=== PATIENT | female | born 1960 | race Caucasian/White ===

== ENCOUNTER 2016-12-29 13:00 | Day surgery (SDC) | payer BC ==
[2016-12-25 11:00] VITALS: BMI 26.6
[~2016-12-29 13:00] MED LIST: LACTATED RINGERS 1,000 ML IV SCH; LIDOCAINE 1% 20 ML VIAL (10MG/ML) FOR IV START INTRADERMA PRN
[2016-12-29] MEDS: ONDANSETRON 4 MG/2 ML VIAL IVP ONE ×2 (14:06→17:50)
[2016-12-29] MEDS ORDERED: MIDAZOLAM 2 MG/2 ML VIAL IVP ONE (14:47)
[2016-12-29] MEDS ORDERED: SUCCINYLCHOLINE CHLORIDE 100 MG/5 ML SYR IV ONE (16:04)
[2016-12-29] MEDS ORDERED: MIDAZOLAM 2 MG/2 ML VIAL ONE (16:04)
[2016-12-29] MEDS ORDERED: fentaNYL (PF) 50 MCG/ML 2 ML AMP ONE (16:04)
[2016-12-29] MEDS ORDERED: PROPOFOL 10 MG/ML 20 ML VIAL IV ONE (16:04)
[2016-12-29] MEDS ORDERED: LIDOCAINE 1% INJ 10MG/ML (20 ML MDV) ONE (16:04)
[2016-12-29] MEDS: ceFAZolin IN SWFI 2 GM/20 ML SYRINGE IVP ONE ×2 (16:04→16:29)
[2016-12-29] MEDS: HYDROmorphone 0.5 MG/0.5 ML SYRINGE IVP PRN ×4 (17:25→17:42)
[2016-12-29 17:31] VITALS: TEMP 98.8
[2016-12-29] MEDS ORDERED: LACTATED RINGERS 1,000 ML IV ONE (17:39)
--- NOTE | 2016-12-29 17:41 | P.OP ---
Date of Procedure: 12/29/16 Preoperative Diagnosis: 1. Right Lisfranc ligament disruption with second metatarsal base fracture 2. Right third metatarsal shaft fracture Postoperative Diagnosis: Same Procedure(s) Performed: 1. Open reduction and internal fixation of right second tarsometatarsal fracture dislocation (open reduction internal fixation right Lisfranc injury) 2. Nonoperative management of right third metatarsal shaft fracture 3. Application of short leg splint Anesthesia: KHRIS Surgeon: Gal Simpson Geriatrics Physician #1: Jose Alejandro Doherty Estimated Blood Loss (ml): 5 IV fluids (ml): 350 Pathology: none sent Condition: stable Disposition: PACU Indications for Procedure: The patient is a 56-year-old female who sustained an isolated injury to her right foot in a fall. She says she heard and felt a pop at the time of her injury. She was immediately painful and unable to ambulate. She was seen in an emergency department, diagnosed with midfoot fractures, placed in a splint and sent to my office for further evaluation. On exam the patient had diffuse swelling, midfoot tenderness, and plantar ecchymosis. Her x-rays showed a slightly widened Lisfranc injury with tony sign and third metatarsal base fracture. She was sent for a computed tomography scan and had stress x-rays in the office which showed diastases with abduction between the base of the second metatarsal and medial cuneiform. Due to the unstable nature of her injury I recommended open reduction and internal fixation in the operating room. We discussed the potential risks and complications of surgery including but not limited to risk of anesthesia, risk of superficial infection, risk of deep infection, risk of delayed wound healing, risk of superficial wound necrosis, risk of damage to local sensory nerves resulting in temporary or permanent numbness, risk of a painful neuroma, risk of nonunion of her fractures, risk of postoperative diastases, risk of failure of hardware, risk of recurrent instability, risk of posttraumatic arthritis, risk of chronic pain, risk of chronic swelling, risk of inability to regain preinjury level of function, risk of generalized to satisfaction of surgery, risk of DVT, risk of PE, risk of other postoperative medical complications, and possibly loss of life or limb. She voiced her understanding of this and provided her verbal and written consent to go forward with surgery. Description of Procedure: The patient was identified in preoperative holding and the correct right leg was marked with my initials. I reviewed the consent form with the patient and answered all of her questions. A popliteal and saphenous nerve block was placed by anesthesia. The patient was then brought back to the operating room and positioned on the operating room table. A general anesthetic and preoperative antibiotics were administered. A tourniquet was applied to the proximal aspect of the right thigh. The left leg was secured to the table with foam and tape. A bone foam ramp was placed under her right leg and a bump was placed under her right buttock. Prior to starting surgery timeout was performed identifying the correct patient, operative extremity, and procedure. Prior to starting surgery Alejandro abduction stress x-ray was performed. When application of a manual abduction stress to the midfoot there was diastases between the second metatarsal base and medial cuneiform. I interpreted this as an unstable Lisfranc injury requiring surgery. The right foot was then prepped and draped in the standard sterile fashion. Prior to starting surgery timeout was performed identifying the correct patient, operative extremity, and procedure. The patient's leg was then elevated, exsanguinated with an Esmarch bandage, and the tourniquet was inflated to 250 mmHg. I began by outlining a longitudinal incision centered between the first and second metatarsals over the first tarsometatarsal joint. Skin incision was made with a 15 blade scalpel. I dissected carefully down through the subcutaneous tissue with tenotomy scissors. A crossing superficial nerve was identified proximally and retracted. I sharply develop the interval between the EHL and FHL. The joint capsule was hemorrhagic. The joint capsules elevated off of the dorsal first and second tarsometatarsal joints. There is obvious disruption between the base of the second metatarsal and medial cuneiform. I was able to place a Lacarne elevator in this space and there was gross instability of both the first and second metatarsals. I then placed one costa of a pointed reduction clamp on the lateral cortex of the proximal second metatarsal and the other costa was placed through a stab wound over the medial aspect of the medial cuneiform. The pointed reduction clamp was gently tightened. Clinically the Lisfranc joint complex appeared to be stable with no persistent diastases. An x-ray with fluoroscopy was taken showing reduction of the second metatarsal base into the [place]. I then placed a K wire for a cannulated 2.7 mm drill bit from the medial aspect of the medial cuneiform across the second metatarsal base. This depth was measured to 28 mm. I then used a cannulated 2.7 mm drill bit to create a threaded pilot boat captain hole from the medial cuneiform into the second metatarsal base. The drill and K wire were removed and a fully threaded, solid 3.5 mm screw was placed. Once the screw was placed the reduction clamp was removed. On inspection the Lisfranc complex appeared to be stable with no persistent diastases. I was unable to place a Lacarne elevator between the base of the second metatarsal and medial cuneiform. A manual abduction stress x-ray under fluoroscopy was repeated. After placement of the screw there was no diastases or signs of instability. An oblique x-ray was also taken showing no subluxation of the third or fourth metatarsals. A lateral x-ray was taken showing no gapping or signs of instability. At this point both wounds were copiously irrigated. The dorsal joint capsule was closed with a running 2-0 Vicryl stitch over the Lisfranc joint complex. The deep subcu was reapproximated using 2-0 Vicryl. The skin was closed with 3-0 nylon. The stab incisions medially were closed with 3-0 nylon. A sterile dressing including Betadine soaked Adaptic, 4 x 4, and web roll was applied followed by a well-padded bulky Matthews splint. The patient was then awoken from her anesthetic, extubated, transferred to the [facility] and brought to PACU having tolerated the procedure well. Jose Alejandro Doherty PA-C was required is a skilled legal document assistant for patient positioning, surgical exposure, [place]man of hardware, closure of wounds, and application of splint. Plan: The patient is going to discharge home as an outpatient. She is to remain strictly nonweightbearing in her operative extremity and is to keep her splint on at all times. She will follow-up in the office in 2 weeks for splint removal, suture removal, and x-rays out of splint.
[2016-12-29 18:55] VITALS: RESP 16
[2016-12-29 19:00] VITALS: BP 135/77; PULSE 79
--- NOTE | 2016-12-30 06:21 | FL ---
FLUOROSCOPY 33 seconds of fluoroscopy time were utilized during arthrodesis of the right foot. 6 images document the procedure.
--- NOTE | 2016-12-30 14:11 | P.ONQ ---
Anesthesiology Proc Note - PNB - Peripheral Nerve Block Performed Popliteal Single Time Out Performed: Yes Procedure Start Time: 14:45 Procedure Stop Time: 14:50 Indication: Acute Post-Operative Pain, Requested by physician Sedation Type: Sedate with meaningful contact maintained Preparation: Sterile Prep Needle Size: 50mm (2") Needle Gauge: 21 Technique: Ultrasound Injectate: 0.5% Ropivacaine (see comment for volume) (ropi.5% 20cc plus decadron 3mg) Blood Aspirated: No Pain Paresthesia on Injection Noted: No Resistance on Injection: Normal Events: Uneventful and Well Tolerated
== END 2016-12-29 19:59 | disposition home or self-care (01) ==
LOC: OR 13:00
PROVIDERS: ATTEND Orthopaedic Surgery
DX: S92.324A Nondisplaced fracture of second metatarsal bone, right foot, initial encounter for closed fracture (principal); S93.324A Dislocation of tarsometatarsal joint of right foot, initial encounter; S92.334A Nondisplaced fracture of third metatarsal bone, right foot, initial encounter for closed fracture; W10.9XXA Fall (on) (from) unspecified stairs and steps, initial encounter; E03.9 Hypothyroidism, unspecified; E78.5 Hyperlipidemia, unspecified; Z85.828 Personal history of other malignant neoplasm of skin; Z79.1 Long term (current) use of non-steroidal anti-inflammatories (NSAID); Z79.899 Other long term (current) drug therapy; Z88.0 Allergy status to penicillin; Z88.2 Allergy status to sulfonamides
CPT/HCPCS: 73630; 28485; 28615; J2250; J0690; J2405; J2001; J3010; J0330; J2704; J1170

== ENCOUNTER 2021-12-01 02:02 | Observation (INO) | payer BC ==
[2021-12-01 02:11] VITALS: TEMP 98.4
[2021-12-01] MEDS ORDERED: SODIUM CHLORIDE 0.9% 500 ML 500 ML IV STA (02:43)
[2021-12-01] MEDS ORDERED: ASPIRIN 81 MG PO STA (02:43)
--- NOTE | 2021-12-01 03:14 | XR ---
EXAMINATION TYPE: XR chest 2V DATE OF EXAM: 12/01/2021 COMPARISON: NONE HISTORY: Dysrhythmia TECHNIQUE: 2 view FINDINGS: Heart and mediastinum are normal. Lungs are clear. Diaphragm is normal. Bony thorax is inta ct. There are chest leads. IMPRESSION: Normal chest.
[2021-12-01 03:18] LABS: ALT 24 U/L (4-34); AST 21 U/L (14-36); African American GFR (CKD) >90 (>60 ml/min/1.73 sqM); Albumin 4.3 g/dL (3.5-5.0); Alkaline Phosphatase 57 U/L (38-126); Anion Gap 13 mmol/L; Blood Urea Nitrogen 16 mg/dL (7-17); Calcium 9.4 mg/dL (8.4-10.2); Carbon Dioxide 19 mmol/L (22-30); Chloride 105 mmol/L (98-107); Glucose 134 mg/dL (74-99); Magnesium 1.8 mg/dL (1.6-2.3); Non-African American GFR(CKD) >90 (>60 ml/min/1.73 sqM); Potassium 4.3 mmol/L (3.5-5.1); Sodium 137 mmol/L (137-145); Total Bilirubin 0.3 mg/dL (0.2-1.3); Total Protein 6.5 g/dL (6.3-8.2)
[2021-12-01 03:22] LABS: INR 0.9 (<1.2); Partial Thromboplastin Time 23.2 sec (22.0-30.0); Prothrombin Time 10.3 sec (9.0-12.0)
--- NOTE | 2021-12-01 03:24 | ED ---
General Adult HPI - General Chief complaint: Arrhythmia/Palpitations Stated complaint: High heart rate Time Seen by Provider: 12/01/21 02:26 Source: patient, RN notes reviewed, old records reviewed Mode of arrival: wheelchair - History of Present Illness Initial comments: Patient is a 61-year-old female with past medical history remarkable for diverticulosis/diverticulitis, thyroid disease his head near syncopal or syncopal episodes in the past when having bowel movements presents emergency Department complaining of the feeling of a racing heart/palpatations following one of these near syncopal episodes after having a bowel movement earlier this evening. States this occurred around 9:30 PM. Heart rate was elevated according to her fit bit went up to 120 beats per minute. She also felt an isolated left upper arm pain that did not radiate from any location that lasted approximately 10 minutes earlier this evening around the time of the palpatations but went away on its own. Denies any chest pain. Denies any current palpitations. Denies any shortness of breath. Denies any nausea or vomiting. Denies any abdominal pain. Has no diarrhea. Just finished a course of antibiotics for diverticulitis. States her symptoms are improving. Denies any history of blood clots. Denies any lower extremity edema. Denies any weakness or numbness in any of her extremities. No other acute complaints at this time. Presents for further evaluation of this time. States her symptoms are pretty typical for nursing flow episode except for her fast heart rate following the episode.Currently is asymptomatic. - Related Data Home Medications Medication Instructions Recorded Confirmed Acetaminophen Tab [Tylenol Tab] 500 mg PO Q4H PRN 12/25/16 12/29/16 Ibuprofen 800 mg PO Q6H PRN 12/25/16 12/29/16 Thyroid,Pork [[place] Thyroid] 60 mg PO DAILY 12/25/16 12/29/16 Previous Rx's Medication Instructions Recorded Aspirin 325 mg PO BID #60 tab 12/29/16 HYDROcodone/APAP 5-325MG [[place] 1 - 2 tab PO Q4H PRN #50 tab 12/29/16 5-325] Allergies Allergy/AdvReac Type Severity Reaction Status Date / Time Penicillins Allergy Rash/Hives Verified 12/01/21 02:10 Sulfa (Sulfonamide Allergy Rash/Hives Verified 12/01/21 02:10 Antibiotics) Review of Systems ROS Statement: Those systems with pertinent positive or pertinent negative responses have been documented in the HPI. Review of Systems: CONST: Denies fever EYES: Denies blurry vision ENT: Denies nasal congestion C/V: Denies Chest pain RESP: Denies shortness of breath GI: Denies abdominal pain : Denies dysuria SKIN: Denies rash. MSK: Denies joint pain. NEURO: Denies headache ROS Other: All systems not noted in ROS Statement are negative. Past Medical History Past Medical History: Cancer, GERD/Reflux, Musculoskeletal Disorder, Osteoarthritis (OA), Thyroid Disorder Additional Past Medical History / Comment(s): fell & fx. right foot 12-14-16-we aring fx. boot, hx. skin cancer, diverticulitis, chronic back pain History of Any Multi-Drug Resistant Organisms: None Reported Past Surgical History: Breast Surgery Additional Past Surgical History / Comment(s): left oophorectomy, breast biopsy Past Anesthesia/Blood Transfusion Reactions: No Reported Reaction Additional Past Anesthesia/Blood Transfusion Reaction / Comment(s): very fearful of needles-has passed out before Past Psychological History: No Psychological Hx Reported Smoking Status: Never smoker Past Alcohol Use History: Occasional Past Drug Use History: None Reported - Past Family History Sister(s) Family Medical History: Cancer Father Family Medical History: Cancer General Exam - General Exam Comments Initial Comments: General: Appears in no acute distress. HEAD: Normal with no signs of head trauma. EYES: PERRLA, EOMI, conjunctiva normal, no discharge. ENT: Hearing grossly intact, normal oropharynx. RESPIRATORY: Clear breath sounds bilaterally. No wheezes, rales, or rhonchi. C/V: Regular rate and rhythm. S1 and S2 auscultated, no edema, peripheral pulses 2+ and intact throughout ABD: Abd is soft, nontender, nondistended EXT: Normal range of motion, no obvious deformity SKIN: No rashes or lesions observed on exposed skin. NEURO: Alert and oriented 4. No focal sensory strength deficits. Course Vital Signs 12/01/21 12/01/21 02:07 03:03 Temperature 98.4 F Pulse Rate 85 76 Respiratory 18 18 Rate Blood Pressure 158/87 120/93 O2 Sat by Pulse 98 96 Oximetry Medical Decision Making - Medical Decision Making Based on the patient's presentation and physical exam, I'm concerned for possible cardiopulmonary etiology for her symptoms. Currently is asymptomatic but had a near syncopal episode earlier with fast heart rate/palpatations and family history of heart disease and atrial fibrillation, which the patient and family are concerned about. All symptoms have resolved. However she will receive an aspirin, small fluid bolus, I would like to obtain cardio pulmonary labs. She was in agreement this plan. Vital signs are within acceptable limits. No tachycardia at this time. EKG shows no signs of acute ischemia. Chest x-ray shows no acute cardiopulmonary process. Patient's laboratory studies are unremarkable, including a d-dimer within normal limits and undetectable troponin. Covid is negative. On reevaluation, patient remains asymptomatic at this time. Patient's heart score is 3. I did discuss with her discharge versus admission. Patient seems extremely concerned regarding possible atrial fibrillation episode earlier. She currently is asymptomatic. I did offer her observation telemetry admission and she does not have any means of monitoring heart rhythm at home and has not followed up with a teachers' aide. She did accept at this time. We'll trend the troponin. Patient was in agreement this plan. Cardiology was consulted. Spoke with patient's admitting physician, Dr. Novak who accepted the patient was in agreement this plan. Patient was admitted to observation telemetry.. - Lab Data Result diagrams: 12/01/21 02:45 12/01/21 02:45 Lab Results 12/01/21 12/01/21 12/01/21 Range/Units 02:44 02:45 02:45 WBC 6.9 (3.8-10.6) k/uL RBC 4.55 (3.80-5.40) m/uL Hgb 14.1 (11.4-16.0) gm/dL Hct 41.3 (34.0-46.0) % MCV 90.6 (80.0-100.0) fL MCH 30.9 (25.0-35.0) pg MCHC 34.1 (31.0-37.0) g/dL RDW 12.5 (11.5-15.5) % Plt Count 229 (150-450) k/uL MPV 8.5 Neutrophils % 65 % Lymphocytes % 22 % Monocytes % 7 % Eosinophils % 1 % Basophils % 0 % Neutrophils # 4.5 (1.3-7.7) k/uL Lymphocytes # 1.5 (1.0-4.8) k/uL Monocytes # 0.5 (0-1.0) k/uL Eosinophils # 0.1 (0-0.7) k/uL Basophils # 0.0 (0-0.2) k/uL PT 10.3 (9.0-12.0) sec INR 0.9 (<1.2) APTT 23.2 (22.0-30.0) sec D-Dimer 0.24 (<0.60) mg/L FEU Sodium (137-145) mmol/L Potassium (3.5-5.1) mmol/L Chloride (98-107) mmol/L Carbon Dioxide (22-30) mmol/L Anion Gap mmol/L BUN (7-17) mg/dL Creatinine (0.52-1.04) mg/dL Est GFR (CKD-EPI)AfAm (>60 ml/min/1.73 sqM) Est GFR (CKD-EPI)NonAf (>60 ml/min/1.73 sqM) Glucose (74-99) mg/dL Calcium (8.4-10.2) mg/dL Magnesium (1.6-2.3) mg/dL Total Bilirubin (0.2-1.3) mg/dL AST (14-36) U/L ALT (4-34) U/L Alkaline Phosphatase (38-126) U/L Troponin I (0.000-0.034) ng/mL Total Protein (6.3-8.2) g/dL Albumin (3.5-5.0) g/dL Coronavirus (PCR) Not Detected (Not Detectd) 12/01/21 12/01/21 Range/Units 02:45 02:45 WBC (3.8-10.6) k/uL RBC (3.80-5.40) m/uL Hgb (11.4-16.0) gm/dL Hct (34.0-46.0) % MCV (80.0-100.0) fL MCH (25.0-35.0) pg MCHC (31.0-37.0) g/dL RDW (11.5-15.5) % Plt Count (150-450) k/uL MPV Neutrophils % % Lymphocytes % % Monocytes % % Eosinophils % % Basophils % % Neutrophils # (1.3-7.7) k/uL Lymphocytes # (1.0-4.8) k/uL Monocytes # (0-1.0) k/uL Eosinophils # (0-0.7) k/uL Basophils # (0-0.2) k/uL PT (9.0-12.0) sec INR (<1.2) APTT (22.0-30.0) sec D-Dimer (<0.60) mg/L FEU Sodium 137 (137-145) mmol/L Potassium 4.3 (3.5-5.1) mmol/L Chloride 105 (98-107) mmol/L Carbon Dioxide 19 L (22-30) mmol/L Anion Gap 13 mmol/L BUN 16 (7-17) mg/dL Creatinine 0.54 (0.52-1.04) mg/dL Est GFR (CKD-EPI)AfAm >90 (>60 ml/min/1.73 sqM) Est GFR (CKD-EPI)NonAf >90 (>60 ml/min/1.73 sqM) Glucose 134 H (74-99) mg/dL Calcium 9.4 (8.4-10.2) mg/dL Magnesium 1.8 (1.6-2.3) mg/dL Total Bilirubin 0.3 (0.2-1.3) mg/dL AST 21 (14-36) U/L ALT 24 (4-34) U/L Alkaline Phosphatase 57 (38-126) U/L Troponin I <0.012 (0.000-0.034) ng/mL Total Protein 6.5 (6.3-8.2) g/dL Albumin 4.3 (3.5-5.0) g/dL Coronavirus (PCR) (Not Detectd) - EKG Data -: EKG Interpreted by Me EKG Comments: 12-lead Electrocardiogram Interpretation Note EKG was reviewed and interpreted by myself. 12-lead ECG performed at 0226 is interpreted by me as revealing normal sinus rhythm at a rate of 78 beats per minute. [place] is normal. [place] interval is 134 ms, QRS duration is 89 ms, QTc is 388 ms.. There were no ST or T wave abnormalities to suggest myocardial ischemia or injury. R wave progression across the precordium was satisfactory. By my interpretation this EKG is non-diagnostic for acute ischemia. Disposition Clinical Impression: Heart palpitations, Near syncope Disposition: ADMITTED IP TO THIS HOSP Condition: Stable Time of Disposition: 04:00
[2021-12-01 03:27] LABS: Basophils % (A) 0 %; Eosinophils # (A) 0.1 k/uL (0-0.7); Eosinophils % (A) 1 %; HCT 41.3 % (34.0-46.0); HGB 14.1 gm/dL (11.4-16.0); Lymphocytes # (A) 1.5 k/uL (1.0-4.8); Lymphocytes % (A) 22 %; MCH 30.9 pg (25.0-35.0); MCHC 34.1 g/dL (31.0-37.0); MCV 90.6 fL (80.0-100.0); Mean Platelet Volume 8.5; Monocytes # (A) 0.5 k/uL (0-1.0); Monocytes % (A) 7 %; Neutrophils # (A) 4.5 k/uL (1.3-7.7); Neutrophils % (A) 65 %; Platelet Count 229 k/uL (150-450); RBC 4.55 m/uL (3.80-5.40); RDW 12.5 % (11.5-15.5); WBC 6.9 k/uL (3.8-10.6)
[2021-12-01] MEDS ORDERED: NALOXONE 0.4 MG/ML 1 ML VIAL IV PRN (04:02)
[2021-12-01] MEDS ORDERED: HEPARIN SODIUM,PORCINE/PF 5,000 UNIT/0.5 ML SYRINGE SQ SCH (08:00)
[2021-12-01] MEDS ORDERED: IBUPROFEN 800 MG TAB PO PRN (08:02)
[2021-12-01 08:15] VITALS: RESP 18
[2021-12-01] MEDS ORDERED: THYROID, PORK 30 MG TAB PO SCH (09:00)
[2021-12-01] MEDS ORDERED: METOPROLOL SUCCINATE (ER) 25 MG TAB.ER.24H PO SCH (09:00)
[2021-12-01] MEDS ORDERED: LOSARTAN 25 MG TAB PO SCH (09:00)
[2021-12-01 09:23] VITALS: BP 134/70
--- NOTE | 2021-12-01 09:25 | US ---
EXAMINATION TYPE: US carotid duplex BILAT DATE OF EXAM: 12/01/2021 COMPARISON: NONE CLINICAL HISTORY: syncope. TECHNIQUE: Carotid duplex ultrasound examination. Indirect Doppler criteria was utilized. FINDINGS: EXAM MEASUREMENTS: RIGHT: Peak Systolic Velocity (PSV) cm/sec ----- Right CCA: 111.0 ----- Right ICA: 163.0 ----- Right ECA: 138.0 ICA/CCA ratio: 1.5 RIGHT: End Diastole cm/sec ----- Right CCA: 27.3 ----- Right ICA: 39.0 ----- Right ECA: 15.4 LEFT: Peak Systolic Velocity (PSV) cm/sec ----- Left CCA: 117.0 ----- Left ICA: 90.6 ----- Left ECA: 99.2 ICA/CCA ratio: 0.8 LEFT: End Diastole cm/sec ----- Left CCA: 25.6 ----- Left ICA: 22.8 ----- Left ECA: 10.8 VERTEBRALS (direction of flow): Right Vertebral: Antegrade Left Vertebral: Antegrade Rhythm: Normal Elevated velocities - right proximal ICA and right proximal ECA No significant stenosis IMPRESSION: 1. 50-69% stenosis of the right ICA. 2. Less than 50% stenosis of the left ICA. Criteria for Assigning % of Stenosis / Diameter reduction (Estimation based on the indirect measurements of the internal carotid artery velocities (ICA PSV). 1. Normal (no stenosis)=ICA PSV < 125 cm/s: ratio < 2.0: ICA EDV<40 cm/s. 2. Less than 50% stenosis=ICA PSV < 125 cm/s: ratio < 2.0: ICA EDV<40 cm/s. 3. 50 to 69% stenosis=ICA PSV of 125 to 230 cm/s: ration 2.0 ? 4.0: ICA EDV 40-100 cm/s. 4. Greater than 70% stenosis to near occlusion= ICA PSV > 230 cm/s: ratio > 4.0: ICA EDV > 100 cm/s. 5. Near occlusion= ICA PSV velocities may be low or undetectable: variable ratio and ICA EDV. 6. Total occlusion=unable to detect flow.
--- NOTE | 2021-12-01 09:59 | P.CRDCN ---
History of Present Illness History of present illness: HISTORY OF PRESENTING ILLNESS This is a pleasant 61-year-old female past medical history significant for hypothyroidism, syncope likely vasovagal, diverticulitis, GERD. 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 We have been asked to see in consultation for palpitations, tachycardia, near syncope. Patient presents emergency department with an episode of increased abdominal cramping yesterday, followed by back pain and diarrhea. She felt lightheaded as if she may pass out. She has had these similar episodes before and she brought herself to the ground and symptoms improved. She did not lose consciousness. After that she had increased palpitations overnight, she looked at fitbit wrist monitor and noted her HR to be in the 100-120s. She states her palpitations did not improve. She presented to the ER for further evaluation. She denies any chest pain, shortness of breath. On arrival to the ER her heart rates improved. She is a history of diverticulitis, recently was diagnosed with a flare and was placed on antibiotics. She has a history of near syncope and syncope with increased abdominal pain and cramping. When she was younger she also had episodes of near syncope and syncope with intense abdominal pain, needles, seeing blood or medical procedures. This morning she is overall feeling well. She denies any history of CAD, [place], Stroke, seizures, diabetes or hypertension. Her BP usually runs SBP 118-120s. She is a non-smoker. Denies alcohol or illicit drug use. DIAGNOSTICS * EKG reveals sinus rhythm, heart rate 78, no significant STT wave abnormalities. * Telemetry tracings indicate sinus rhythm, heart rate in the 60s80s, no arrhythmia noted.. * Chest xray no acute cardiopulmonary process * Carotid Dopplers reported 5069 percent stenosis of the right ICA, less than 5 0% stenosis of the left ICA * Laboratory reviewed CBC unremarkable, troponin negative 2, d-dimer negative, sodium 139, potassium 4.3, BUN 16, serum creatinine 0.54, magnesium 1.8 * Current home medications include thyroid, when necessary [place], when necessary ibuprofen, when necessary tramadol REVIEW OF SYSTEMS At the time of my exam: CONSTITUTIONAL: Denies fever or chills. CARDIOVASCULAR: Denies chest pain, shortness of breath, orthopnea, PND . Reports palpitations. RESPIRATORY: Denies cough. GASTROINTESTINAL: Denies abdominal pain, diarrhea, constipation, nausea or vomiting. MUSCULOSKELETAL: Denies myalgias. NEUROLOGIC: Denies numbness, tingling, headacbe or weakness. ENDOCRINE: Denies fatigue, weight change, polydipsia or polyurina. GENITOURINARY: Denies burning, hematuria or urgency with micturation. HEMATOLOGIC: Denies history of anemia or bleeding. PHYSICAL EXAMINATION Blood pressure 134/70, heart rate 80, afebrile, saturation 97% on room air CONSTITUTIONAL: No apparent distress. HEENT: Head is normocephalic. Pupils are equal, round. Sclerae anicteric. Mucous membranes of the mouth are moist. No JVD. No carotid bruit. CHEST EXAMINATION: Lungs are clear to auscultation. No chest wall tenderness is noted on palpation or with deep breathing. HEART EXAMINATION: Regular rate and rhythm. S1, S2 heard. No murmurs, gallops or rub. ABDOMEN: Soft, nontender. Positive bowel sounds. EXTREMITIES: 2+ peripheral pulses, no lower extremity edema and no calf tenderness. NEUROLOGIC EXAMINATION: Patient is awake, alert and oriented x3. ASSESSMENT Near syncopal episode, likely vasovagal Palpitations Abdominal cramping and diarrhea History of near syncope/syncope with abdominal pain/cramping. And prior syncope in her youth with needles, blood or seeing medical procedures History of diverticulitis Hypothyroidism PLAN Obtain TSH Obtain 2D echocardiogram and doppler study to assess cardiac structure and function. Recommend monitoring BP as an outpatient at home prior to starting antihypertensive medications Recommend 30 day event monitor prior to discharge Likely home later today and follow up outpatient. Nurse practitioner note has been reviewed by physician. Signing provider agrees with the documented findings, assessment, and plan of care. Past Medical History Past Medical History: Cancer, GERD/Reflux, Musculoskeletal Disorder, Osteoarthritis (OA), Thyroid Disorder Additional Past Medical History / Comment(s): fell & fx. right foot 65-5-31-wearing fx. boot, hx. skin cancer, diverticulitis, chronic back pain History of Any Multi-Drug Resistant Organisms: None Reported Past Surgical History: Breast Surgery Additional Past Surgical History / Comment(s): left oophorectomy, breast biopsy Past Anesthesia/Blood Transfusion Reactions: No Reported Reaction Additional Past Anesthesia/Blood Transfusion Reaction / Comment(s): very fearful of needles-has passed out before Past Psychological History: No Psychological Hx Reported Smoking Status: Never smoker Past Alcohol Use History: Occasional Past Drug Use History: None Reported - Past Family History Sister(s) Family Medical History: Cancer Father Family Medical History: Cancer Medications and Allergies Home Medications Medication Instructions Recorded Confirmed Type Ibuprofen 800 mg PO Q6H PRN 12/25/16 12/01/21 History Thyroid,Pork [[place] Thyroid] 60 mg PO BID 12/25/16 12/01/21 History Meloxicam [Mobic] 7.5 mg PO BID 12/01/21 12/01/21 History methocarbamoL [Methocarbamol] 750 mg PO QID PRN 12/01/21 12/01/21 History traMADol HCL 50 - 100 mg PO Q4H PRN 12/01/21 12/01/21 History Allergies Allergy/AdvReac Type Severity Reaction Status Date / Time Penicillins Allergy Rash/Hives Verified 12/01/21 08:02 Sulfa (Sulfonamide Allergy Rash/Hives Verified 12/01/21 08:02 Antibiotics) Physical Exam Vitals: Vital Signs Temp Pulse Resp BP Pulse Ox 12/01/21 08:13 70 18 168/89 99 12/01/21 06:59 63 16 118/63 97 12/01/21 03:03 76 18 120/93 96 12/01/21 02:07 98.4 F 85 18 158/87 98 Intake and Output 11/30/21 12/01/21 12/01/21 22:59 06:59 14:59 Other: Weight 79.379 kg Results 12/01/21 02:45 12/01/21 02:45 Cardiac Enzymes 12/01/21 12/01/21 12/01/21 Range/Units 02:45 02:45 06:23 AST 21 (14-36) U/L Troponin I <0.012 <0.012 (0.000-0.034) ng/mL Coagulation 12/01/21 Range/Units 02:45 PT 10.3 (9.0-12.0) sec APTT 23.2 (22.0-30.0) sec CBC 12/01/21 Range/Units 02:45 WBC 6.9 (3.8-10.6) k/uL RBC 4.55 (3.80-5.40) m/uL Hgb 14.1 (11.4-16.0) gm/dL Hct 41.3 (34.0-46.0) % Plt Count 229 (150-450) k/uL Comprehensive Metabolic Panel 12/01/21 Range/Units 02:45 Sodium 137 (137-145) mmol/L Potassium 4.3 (3.5-5.1) mmol/L Chloride 105 (98-107) mmol/L Carbon Dioxide 19 L (22-30) mmol/L BUN 16 (7-17) mg/dL Creatinine 0.54 (0.52-1.04) mg/dL Glucose 134 H (74-99) mg/dL Calcium 9.4 (8.4-10.2) mg/dL AST 21 (14-36) U/L ALT 24 (4-34) U/L Alkaline Phosphatase 57 (38-126) U/L Total Protein 6.5 (6.3-8.2) g/dL Albumin 4.3 (3.5-5.0) g/dL Current Medications Generic Name Dose Route Start Last Admin Trade Name Freq PRN Reason Stop Dose Admin Heparin Sodium (Porcine) 5,000 unit 12/01/21 08:00 12/01/21 08:15 Heparin Sodium,Porcine/Pf 5,000 Unit/0.5 Ml Syringe SQ Not Given Q8HR ATILIO Ibuprofen 800 mg 12/01/21 08:02 Ibuprofen 800 Mg Tab PO Q6H PRN Pain Losartan Potassium 25 mg 12/01/21 09:00 Losartan 25 Mg Tab PO DAILY ATILIO Metoprolol Succinate 25 mg 12/01/21 09:00 Metoprolol Succinate (Er) 25 Mg Tab.Er.24h PO DAILY ATILIO Naloxone HCl 0.2 mg 12/01/21 04:02 Naloxone 0.4 Mg/Ml 1 Ml Vial IV Q2M PRN Opioid Reversal Thyroid 60 mg 12/01/21 09:00 12/01/21 08:15 Thyroid, Pork 30 Mg Tab PO Not Given BID ATILIO Intake and Output 11/30/21 12/01/21 12/01/21 22:59 06:59 14:59 Other: Weight 79.379 kg 12/01/21 02:45 12/01/21 02:45
[2021-12-01] MEDS ORDERED: MELOXICAM 7.5 MG TAB PO PRN (10:20)
[2021-12-01] MEDS ORDERED: methocarbamoL 750 MG TAB PO PRN (10:20)
[2021-12-01] MEDS ORDERED: traMADol 50 MG TAB PO PRN (10:20)
--- NOTE | 2021-12-01 10:22 | P.HPIM ---
History of Present Illness H&P Date: 12/01/21 HISTORY OF PRESENT ILLNESS This is a 61-year-old female with past medical history of gastroesophageal reflux disease, generalized osteoarthritis, hypothyroidism, diverticulitis, c hronic back pain, skin cancer. Patient gives history that she had abdominal cramps yesterday tried have a bowel movement and had a syncopal episode which she states she has had in the past but infrequently. Following that, patient complains of her heart rate being high for a couple hours and she just felt "wrong." Her FitBit registered heart rate of 107 230s. She denies having any chest pain at the time but felt a little left arm pain that went away in a few minutes. Patient is not usually physically active and works at home at a desk. She has recently been on antibiotics a few weeks ago for diverticulitis. She is currently on a low residue diet which has not been advanced and is avoiding all nuts and seeds. She states her abdomen still feels a little crampy and bloated. Patient presented to [facility] and found to be afebrile, heart rate 85, blood pressure 158/87, pulse ox 90% on room air. EKG is a sinus rhythm with no acute ST-T wave changes. CBC was within normal limits. CO2 19 otherwise electrolytes and renal function normal. Blood sugar 134. D-dimer 0.24. INR 0.9. Coronavirus PCR not detected. Magnesium 1.8. Liver function tests within normal limits. Troponin negative. Albumin 4.3. Chest x-ray normal. Patient is seen today in the emergency center waiting for a bed on the observation unit. Consult in place with cardiology and we have added an echocardiogram and carotid ultrasound. Cardiology has recommended holding blood pressure medication and monitor blood pressure in the outpatient setting, event monitor has been placed and patient is cleared by cardiology for discharge home. Patient will be discharged today in stable condition. Carotid ultrasound reveals 50-69% stenosis on the right ICA, less than 50% stenosis of the left ICA. Echocardiogram reveals EF of 55%, borderline increased left ventricular wall thickness, mild mitral regurgitation, mild tricuspid regurgitation. REVIEW OF SYSTEMS Constitutional: No fever, no chills, no night sweats. No weight change. No weakness, fatigue or lethargy. No daytime sleepiness. EENT: No headache. No blurred vision or double vision, no loss of vision. No loss of Hearing, no ringing in the ears, no dizziness. No nasal drainage or congestion. No epistaxis. No sore throat. Lungs: No shortness of breath, cough, no sputum production. No wheezing. Cardiovascular: No chest pain, no lower extremity edema. No palpitations. No paroxysmal nocturnal dyspnea. No orthopnea. No lightheadedness or dizziness. Reported 1 syncopal episode. Abdominal: Minimal left lower quadrant pain, mild abdominal bloating. No nausea, vomiting. No diarrhea. No constipation. No bloody or tarry stools. No loss of appetite. Genitourinary: No dysuria, increased frequency, urgency. No urinary retention. Musculoskeletal: No myalgias. No muscle weakness, no gait dysfunction, no frequent falls. Chronic back pain. No neck pain. Integumentary: No wounds, no lesions. No rash or pruritus. No unusual bruising. No change in hair or nails. Neurologic: No aphasia. No facial droop. No change in mentation. No head injury. No headache. No paralysis. No paresthesia. Psychiatric: No depression. No anxiety. No mood swings. Endocrine: No abnormal blood sugars. No weight change. No excessive sweating or thirst. No cold intolerance. 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 SOCIAL HISTORY Patient is a lifelong nonsmoker, occasional alcohol use, no illicit drug use. Patient lives at home alone. FAMILY HISTORY Mother is alive at age 80 with history of coronary artery disease, diabetes, hypertension and TIAs. Father is alive at age 82 with history of coronary artery disease, A. fib status post ablation. He has history of colon cancer, prostate cancer and basal cell skin cancer. Patient has one brother with history of diabetes and hypertension. Patient has 3 sisters, 2 sisters have no major medical problems. One sister has history of melanoma and hypertension. PHYSICAL EXAMINATION Gen: This is an obese 61-year-old female. She is resting on the ER stretcher and appears to be comfortable and in no acute distress. HEENT: Head is atraumatic, normocephalic. Pupils equal, round. Sclerae is anicteric. NECK: Supple. No JVD. No lymphadenopathy. No thyromegaly. LUNGS: Clear to auscultation. No wheezes or rhonchi. No intercostal retractions. HEART: Regular rate and rhythm. No murmur. ABDOMEN: Soft. Bowel sounds are present. No masses. No tenderness. No left lower quadrant tenderness. EXTREMITIES: No pedal edema. No calf tenderness. NEUROLOGICAL: Patient is awake, alert and oriented x3. Cranial nerves 2 through 12 are grossly intact. ASSESSMENT AND PLAN 1. Syncopal episode most likely vasovagal. Cardiology consult ordered, echocardiogram and carotid ultrasound. 2. Hypertension. Monitor as an outpatient 3. Sinus tachycardia. 4. Recent treatment for diverticulitis, patient completed course of antibiotics. 5. Hypothyroidism. Continue [place] Thyroid 60 mg twice daily. 6. Chronic back pain. Continue tramadol as needed, methocarbamol 750 mg 4 times daily if needed, multiple back 7.5 mg twice daily if needed. 7. GI prophylaxis. Protonix. 8. DVT prophylaxis. Early ambulation. CODE STATUS: Full code Patient is observation status. DISCHARGE PLAN Return home. No changes made to patient's home medication list. Impression and plan of care have been directed as dictated by the signing physician. Litzy Guzman nurse practitioner acting as scribe for signing physician. Past Medical History Past Medical History: Cancer, GERD/Reflux, Musculoskeletal Disorder, Osteoarthritis (OA), Thyroid Disorder Additional Past Medical History / Comment(s): fell & fx. right foot 12-14-16-wearing fx. boot, hx. skin cancer, diverticulitis, chronic back pain History of Any Multi-Drug Resistant Organisms: None Reported Past Surgical History: Breast Surgery Additional Past Surgical History / Comment(s): left oophorectomy, breast biopsy Past Anesthesia/Blood Transfusion Reactions: No Reported Reaction Additional Past Anesthesia/Blood Transfusion Reaction / Comment(s): very fearful of needles-has passed out before Past Psychological History: No Psychological Hx Reported Smoking Status: Never smoker Past Alcohol Use History: Occasional Past Drug Use History: None Reported - Past Family History Sister(s) Family Medical History: Cancer Father Family Medical History: Cancer Medications and Allergies Home Medications Medication Instructions Recorded Confirmed Type RX: Ibuprofen 800 mg PO Q6H PRN 12/25/16 12/01/21 History RX: Thyroid,Pork [[place] Thyroid] 60 mg PO BID 12/25/16 12/01/21 History RX: Meloxicam [Mobic] 7.5 mg PO BID 12/01/21 12/01/21 History RX: methocarbamoL [Methocarbamol] 750 mg PO QID PRN 12/01/21 12/01/21 History RX: traMADol HCL 50 - 100 mg PO Q4H PRN 12/01/21 12/01/21 History Allergies Allergy/AdvReac Type Severity Reaction Status Date / Time Penicillins Allergy Rash/Hives Verified 12/01/21 08:02 Sulfa (Sulfonamide Allergy Rash/Hives Verified 12/01/21 08:02 Antibiotics) Physical Exam Vitals: Vital Signs Temp Pulse Resp BP Pulse Ox 12/01/21 06:59 63 16 118/63 97 12/01/21 03:03 76 18 120/93 96 12/01/21 02:07 98.4 F 85 18 158/87 98 Intake and Output 11/30/21 12/01/21 12/01/21 22:59 06:59 14:59 Other: Weight 79.379 kg Results CBC & Chem 7: 12/01/21 02:45 12/01/21 02:45 Labs: Abnormal Lab Results - Last 24 Hours (Table) 12/01/21 Range/Units 02:45 Carbon Dioxide 19 L (22-30) mmol/L Glucose 134 H (74-99) mg/dL
--- NOTE | 2021-12-01 11:56 | CA ---
Transthoracic Echo Report Name: Catia Hernandez Age: 61 Gender: F : 1960 Exam Date: 12/01/2021 09:23 Exam Location: [facility] Ht (in): 65 Wt (lb): 175 Ordering Physician: Litzy Guzman Attending/Referring Phys: Thomas Mcghee;[id number] Manager [employer] Lainey Mo RDCS Procedure CPT: Indications: LVF Cardiac Hx: Technical Quality: Good Contrast 1: Total Dose (mL): Contrast 2: Total Dose (mL): MEASUREMENTS (Male / Female) Normal Values 2D ECHO LV Diastolic Diameter PLAX 3.9 cm 4.2 - 5.9 / 3.9 - 5.3 cm LV Systolic Diameter PLAX 2.6 cm IVS Diastolic Thickness 1.1 cm 0.6 - 1.0 / 0.6 - 0.9 cm LVPW Diastolic Thickness 1.2 cm 0.6 - 1.0 / 0.6 - 0.9 cm LV Relative Wall Thickness 0.6 RV Internal Dim ED PLAX 2.8 cm LA Systolic Diameter LX 2.9 cm 3.0 - 4.0 / 2.7 - 3.8 cm M-MODE Aortic Root Diameter MM 2.2 cm LA Systolic Diameter MM 3.1 cm LA Ao Ratio MM 1.4 MV E Point Septal Separation 0.6 cm AV Cusp Separation MM 2.0 cm DOPPLER MV Area PHT 3.7 cm??? Mitral E Point Velocity 99.4 cm/s Mitral A Point Velocity 88.4 cm/s Mitral E to A Ratio 1.1 MV Deceleration Time 207.0 ms MV E' Velocity 9.5 cm/s Mitral E to MV E' Ratio 10.4 FINDINGS Left Ventricle Left ventricular ejection fraction is estimated at 55%. Borderline increased left ventricular wall thickness Right Ventricle Normal right ventricular size and function. Right Atrium Normal right atrial size. Left Atrium Normal left atrial size. Mitral Valve Structurally normal mitral valve. Mild mitral regurgitation. Aortic Valve Trileaflet aortic valve. Tricuspid Valve Structurally normal tricuspid valve. Mild tricuspid regurgitation. Pulmonic Valve Pulmonic valve not well visualized. Pericardium Normal pericardium. Aorta Normal size aortic root and proximal ascending aorta. CONCLUSIONS Left ventricular ejection fraction 55% Borderline increased left ventricular wall thickness Mild mitral regurgitation Mild tricuspid regurgitation No pericardial effusion Previewed by: Dr. Arash Varela DO (Electronically Signed) Final Date: 01 December 2021 11:55
[2021-12-01 12:10] LABS: T4, Free (Free Thyroxine) 0.91 ng/dL (0.78-2.19)
[2021-12-01 13:19] VITALS: PULSE 75
== END 2021-12-01 14:00 | disposition home or self-care (01) ==
LOC: EC 02:02 → 6NMEDSUR 04:03
PROVIDERS: ADMIT Internal Medicine; ATTEND Internal Medicine
DX: R55 Syncope and collapse (principal); R00.2 Palpitations; R10.9 Unspecified abdominal pain; R19.7 Diarrhea, unspecified; K21.9 Gastro-esophageal reflux disease without esophagitis; M15.9 Polyosteoarthritis, unspecified; G89.29 Other chronic pain; M54.9 Dorsalgia, unspecified; E03.9 Hypothyroidism, unspecified; I65.23 Occlusion and stenosis of bilateral carotid arteries; I10 Essential (primary) hypertension; R00.0 Tachycardia, unspecified; E66.9 Obesity, unspecified; Z85.828 Personal history of other malignant neoplasm of skin; Z87.19 Personal history of other diseases of the digestive system; Z20.822 Contact with and (suspected) exposure to COVID-19; Z79.1 Long term (current) use of non-steroidal anti-inflammatories (NSAID); Z79.890 Hormone replacement therapy; Z79.82 Long term (current) use of aspirin; Z88.0 Allergy status to penicillin; Z88.2 Allergy status to sulfonamides
CPT/HCPCS: 96360; 96361; 99285; 36415; 93005; 93306; 93270; 85379; 84439; 80053; 84443; 83735; 84484; 85025; 85610; 85730; 87635; 71046; 93880; G0378